=== PATIENT | male | born 1965 | race Caucasian/White ===

== ENCOUNTER 2016-12-26 13:46 | Emergency (ER) | payer OTHER ==
[~2016-12-26] VITALS: Ht 167.6 cm; Wt 88.5 kg
[2016-12-26 18:26] VITALS: BP 140/72
== END 2016-12-26 18:26 | disposition home or self-care (01) ==
LOC: ED 13:46
DX: S91.111A Laceration without foreign body of right great toe without damage to nail, initial encounter (principal); I10 Essential (primary) hypertension; V19.9XXA Pedal cyclist (driver) (passenger) injured in unspecified traffic accident, initial encounter; Y93.I9 Activity, other involving external motion; Y99.8 Other external cause status; Y92.89 Other specified places as the place of occurrence of the external cause
CPT/HCPCS: 90715; J2001

== ENCOUNTER 2017-02-28 07:39 | Emergency (ER) | payer OTHER ==
[~2017-02-28] VITALS: Ht 167.6 cm; Wt 83.0 kg
[2017-02-28 07:51] VITALS: BP 128/97
== END 2017-02-28 08:47 | disposition home or self-care (01) ==
LOC: ED 07:39
DX: J06.9 Acute upper respiratory infection, unspecified (principal); J02.9 Acute pharyngitis, unspecified; I10 Essential (primary) hypertension

== ENCOUNTER 2017-08-22 22:34 | Emergency (ER) | payer OTHER ==
[2017-08-23 00:18] VITALS: BP 142/101
== END 2017-08-23 00:18 | disposition home or self-care (01) ==
LOC: ED 22:34
DX: L02.511 Cutaneous abscess of right hand (principal); M79.89 Other specified soft tissue disorders; M25.571 Pain in right ankle and joints of right foot

== ENCOUNTER 2017-09-02 03:40 | Emergency (ER) | payer OTHER ==
[~2017-09-02] VITALS: Ht 167.6 cm; Wt 81.2 kg
[2017-09-02 05:24] VITALS: BP 136/84
== END 2017-09-02 05:24 | disposition home or self-care (01) ==
LOC: ED 03:40
DX: M17.12 Unilateral primary osteoarthritis, left knee (principal); I10 Essential (primary) hypertension; F32.9 Major depressive disorder, single episode, unspecified
CPT/HCPCS: J1885

== ENCOUNTER 2018-09-09 12:53 | Emergency (ER) | payer OTHER ==
[~2018-09-09] VITALS: Ht 165.1 cm; Wt 85.7 kg
[2018-09-09 13:08] VITALS: Ht 165.1 cm; Wt 85.7 kg
[2018-09-09 15:13] VITALS: BP 148/97
== END 2018-09-09 15:13 | disposition home or self-care (01) ==
LOC: ED 12:53
DX: I88.9 Nonspecific lymphadenitis, unspecified (principal); G51.0 Bell's palsy; I10 Essential (primary) hypertension; F31.9 Bipolar disorder, unspecified
CPT/HCPCS: 82962

== ENCOUNTER 2019-01-16 14:43 | Emergency (ER) | payer OTHER | END 2019-01-16 18:04 | disposition home or self-care (01) | LOC: ED 14:43 ==